=== PATIENT | female | born 2005 | race Caucasian/White ===

== ENCOUNTER 2023-02-07 01:32 | Emergency (ER) | payer BC ==
[~2023-02-07] VITALS: Ht 177.8 cm; Wt 77.1 kg
[2023-02-07 01:50] VITALS: BP 130/70
--- NOTE | 2023-02-07 01:53 | NUR ---
TO LOBBY A/W BED AMBULATORY
[2023-02-07] MEDS ORDERED: IBUP-1842 PO (03:09)
[2023-02-07 03:18] VITALS: BP 130/70
== END 2023-02-07 03:18 | disposition home or self-care (01) ==
LOC: MED 01:32
DX: S93.491A Sprain of other ligament of right ankle, initial encounter (principal); X50.1XXA Overexertion from prolonged static or awkward postures, initial encounter; Y93.89 Activity, other specified; Y92.89 Other specified places as the place of occurrence of the external cause; Y99.8 Other external cause status
CPT/HCPCS: 73610; 99283